=== PATIENT | female | born 1970 | race Asian ===

== ENCOUNTER 2017-02-01 20:59 | Emergency (ER) | payer SELFPAY ==
[2017-02-01 21:22] LABS: SPECIFIC GRAVITY 1.015 (1.001-1.030); URINE BILIRUBIN NEGATIVE (NEGATIVE); URINE BLOOD NEGATIVE (NEGATIVE); URINE GLUCOSE (UA) NEGATIVE (NEGATIVE); URINE LEUKOCYTE ESTERASE NEGATIVE (NEGATIVE); URINE NITRITE NEGATIVE (NEGATIVE); URINE PROTEIN NEGATIVE (NEGATIVE); URINE UROBILINOGEN NORMAL (0-1 mg/dl)
[2017-02-01 21:24] LABS: HCG,QUALITATIVE URINE NEGATIVE; URINE APPEARANCE CLEAR; URINE COLOR STRAW
[2017-02-01 23:12] LABS: ABSOLUTE NEUTROPHIL COUNT 2.6 K/mm3 (1.8-7.7); BASO % 0.8 % (0.2-1.0); EOS # 0.1 (0.0-0.5); EOS % 2.1 % (0.9-2.9); HEMATOCRIT 39.6 % (37.0-47.0); HEMOGLOBIN 12.9 gm/l (12.0-16.0); IMM NEUT% 0.2 % (0-1); LYMPH # 1.6 (1.0-4.8); MEAN CELL VOLUME 89.2 fl (81.0-99.0); MEAN CORPUSCULAR HEMOGLOBIN 29.1 pg (27.0-31.0); MEAN CORPUSCULAR HGB CONC 32.6 g/dl (33.0-37.0); MEAN PLATELET VOLUME 10.4 fl (7.4-10.4); MONO # 0.4 (0.0-0.8); MONO % 8.5 % (4-12); NEUT % 54.4 % (43-75); PLATELET COUNT 228 K/mm3 (130-400); RED CELL DISTRIBUTION WIDTH 12.7 % (11.5-14.5)
[2017-02-01] MEDS ORDERED: ONDANSETRON 4 MG/2ML 2 ML VIAL ONE (23:14)
[2017-02-01] MEDS ORDERED: KETOROLAC TROMETHAMINE 30 MG/ML 1 ML VIAL ONE (23:14)
[2017-02-01] MEDS ORDERED: HYDROMORPHONE HCL 0.5 MG/0.5 ML SYRINGE ONE (23:14)
[2017-02-01 23:24] LABS: ALB/GLOB RATIO 1.6 (>1.0); ALBUMIN 4.5 gm/dL (3.5-5.7)
--- NOTE | 2017-02-02 08:14 | US ---
EXAMINATION: Right lower quadrant limited abdominal ultrasound. Clinical indication: Right lower quadrant pain. Comparisons:None Findings: Sonographic interrogation of the right lower quadrant reveals: No noncompressible bowel. No abnormal fluid collections are identified. No discrete mass is seen. The appendix is not visualized. Prominent stool is noted the right lower quadrant. Also note in this distribution is a 1.6 cm reducible bowel containing ventral hernia. IMPRESSION: 1. Appendix is not visualized. Please note this does not exclude the possibility of appendicitis. Continued clinical evaluation and cross-sectional imaging may be considered if indicated 2. 1.6 cm reducible ventral hernia near the region of pain and tenderness. 3. Moderate stool is noted in the right lower quadrant. This is noncompressible. Findings were communicated by [facility] to the emergency department at: 1:26 AM 02/02/2017
--- NOTE | 2017-02-02 08:17 | US ---
Clinical indication: Right lower quadrant pain. Technique: Transabdominal pelvic sonography was performed. Sonographic interrogation the right ovary was performed as per ordering physician. A complete pelvic ultrasound was not performed. Comparison: None Findings: Adnexa: Right ovary: 1.5 x 1.3 x 1.5 cm. centimeters. There is normal Doppler flow. Echogenic foci are noted within the right ovary. This may reflect granulation tissue or small calcifications. No worrisome process is identified IMPRESSION: No evidence of right ovarian torsion or mass. Small punctate echogenic granulation foci are noted. Findings were communicated by [facility] to the emergency department at: 1:28 AM 02/02/2017
== END 2017-02-02 02:44 | disposition home or self-care (01) ==
LOC: ED 20:59
DX: K46.9 Unspecified abdominal hernia without obstruction or gangrene (principal)
CPT/HCPCS: 83690; 81025; 85025; 80053; 81003; 76705; 76857; 96375; 99283 ×2; 96374; J1885; J2405